=== PATIENT | female | born 1990 | race Caucasian/White ===

== ENCOUNTER 2017-12-31 11:08 | Emergency (ER) | payer OTHER ==
[~2017-12-31] VITALS: Ht 157.5 cm; Wt 56.7 kg
[~2017-12-31 11:08] MED LIST: AZIT250 PO; Augmentin 875-1 EACH PO; BUSP5 PO; CODIENE; COUGH; CYCL10 PO; IBUP800 PO; METPRE4DP PO; NAPR500 PO; Naprosyn500 MG PO; ONDA4 PO; OXYACE5T PO; PROCODE120 PO; PROM25 PO; Robaxin500 MG PO; Zofran Odt4 MG SL
[2018-01-01] MEDS ORDERED: Esgic Tablet1 EACH PO (13:30)
== END 2017-12-31 12:19 | disposition home or self-care (01) ==
LOC: ER 11:08
DX: R51 Headache (principal); Z88.5 Allergy status to narcotic agent; F17.210 Nicotine dependence, cigarettes, uncomplicated
CPT/HCPCS: 96372; 99283; J0780; J1200; J1885

== ENCOUNTER 2018-01-01 12:56 | Emergency (ER) | payer OTHER ==
[~2018-01-01] VITALS: Ht 157.5 cm; Wt 59.0 kg
[2018-01-01] MEDS ORDERED: Esgic Tablet1 EACH PO (13:30)
== END 2018-01-01 13:40 | disposition home or self-care (01) ==
LOC: ER 12:56
DX: R51 Headache (principal); F17.210 Nicotine dependence, cigarettes, uncomplicated; Z88.5 Allergy status to narcotic agent; Z79.899 Other long term (current) drug therapy
CPT/HCPCS: 99282

== ENCOUNTER 2019-01-08 13:50 | Emergency (ER) | payer MEDICAID ==
[~2019-01-08] VITALS: Ht 157.5 cm; Wt 68.0 kg
[~2019-01-08 13:50] MED LIST changes: +Esgic Tablet1 EACH PO
[2019-01-08] MEDS ORDERED: CYCL10 PO (16:08)
[2019-01-08] MEDS ORDERED: IBUP600 PO (16:08)
[2019-01-08] MEDS ORDERED: Ultram50 MG PO (16:08)
== END 2019-01-08 16:20 | disposition home or self-care (01) ==
LOC: ER 13:50
DX: M54.5 Low back pain (principal); Z88.5 Allergy status to narcotic agent; F17.210 Nicotine dependence, cigarettes, uncomplicated
CPT/HCPCS: 72070; J1885

== ENCOUNTER 2019-02-03 11:40 | Emergency (ER) | payer MEDICAID ==
[~2019-02-03] VITALS: Ht 157.5 cm; Wt 72.6 kg
[~2019-02-03 11:40] MED LIST changes: +IBUP600 PO; +Ultram50 MG PO
[2019-02-03] MEDS ORDERED: ALBU90OI INH (12:47)
[2019-02-03] MEDS ORDERED: Aerochamber1 EACH INH (12:47)
== END 2019-02-03 12:54 | disposition home or self-care (01) ==
LOC: ER 11:40
DX: J06.9 Acute upper respiratory infection, unspecified (principal); F17.210 Nicotine dependence, cigarettes, uncomplicated; Z88.6 Allergy status to analgesic agent
CPT/HCPCS: 71046; 99283-25

== ENCOUNTER 2022-04-08 21:23 | Emergency (ER) | payer OTHER ==
[~2022-04-08] VITALS: Ht 157.5 cm; Wt 90.7 kg
[~2022-04-08 21:23] MED LIST changes: +ALBU90OI INH; +Aerochamber1 EACH INH
[2022-04-09 02:24] LABS: BASOPHILS ABSOLUTE AUTO 0.02 K/mm3 (0.00-0.23); BASOPHILS PERCENT AUTO 0 % (0-2); EOSINOPHILS PERCENT AUTO 0 % (0-6); Hematocrit 37.3 % (33.0-51.0); Hemoglobin 12.7 g/dL (11.5-16.0); IMMATURE GRAN ABSOLUTE AUTO 0.02 K/mm3 (0.00-0.10); IMMATURE GRAN PERCENT AUTO 0 % (0-1); LYMPHOCYTES ABSOLUTE AUTO 0.42 K/mm3 (0.84-5.20); LYMPHOCYTES PERCENT AUTO 6 % (21-46); MONOCYTES ABSOLUTE AUTO 0.44 K/mm3 (0.16-1.47); MONOCYTES PERCENT AUTO 7 % (4-13); Mean Corpuscular HGB 29.5 pg (26.0-34.0); Mean Corpuscular Volume 87 fL (80-100); Mean Platelet Volume 9.3 fL (9.1-12.4); NEUTROPHILS ABSOLUTE AUTO 5.89 K/mm3 (1.96-9.15); NEUTROPHILS PERCENT AUTO 87 % (41-73); Platelet Count 244 K/mm3 (150-400); RDW Coefficient Variation 12.6 % (11.7-14.2); RDW Standard Deviation 40.1 fL (35.1-46.3); White Blood Cell Count 6.79 K/mm3 (4.00-11.30)
[2022-04-09 02:42] LABS: Albumin, Blood 4.1 g/dL (3.4-5.0); Albumin/Globulin Ratio 1.1 (0.8-1.8); Bilirubin, Total 0.2 mg/dL (0.1-1.0); Bun/Creatinine Ratio 13.3 (12.0-20.0); Calcium, Blood 8.9 mg/dL (8.5-10.1); Creatinine, Blood 0.83 mg/dL (0.40-1.00); Globulin, Blood 3.7 g/dL (2.2-4.0); Potassium, Blood 3.8 mmol/L (3.5-5.5); Total Protein, Blood 7.8 g/dL (6.4-8.2)
[2022-04-09] MEDS ORDERED: ONDA4ODT MM (04:37)
== END 2022-04-09 05:00 | disposition home or self-care (01) ==
LOC: ER 21:23
PROVIDERS: Student in an Organized Health Care Education/Training Program
DX: U07.1 COVID-19 (principal); F17.210 Nicotine dependence, cigarettes, uncomplicated; Z88.5 Allergy status to narcotic agent
CPT/HCPCS: 36415; 71045; 80053; 85025; 96374; 99284; A9270; J1885; J7030

== ENCOUNTER 2023-10-22 19:18 | Emergency (ER) | payer OTHER ==
[~2023-10-22] VITALS: Ht 157.5 cm; Wt 94.3 kg
[~2023-10-22 19:18] MED LIST changes: +ONDA4ODT MM
[2023-10-22 19:34] VITALS: BP 124/79
== END 2023-10-22 23:33 | disposition home or self-care (01) ==
LOC: ER 19:18
DX: I82.612 Acute embolism and thrombosis of superficial veins of left upper extremity (principal); F17.210 Nicotine dependence, cigarettes, uncomplicated; Z88.5 Allergy status to narcotic agent
CPT/HCPCS: 93971; 96372; 99283-25; J1885

== ENCOUNTER → 2024-08-05 | Outpatient (CLI) | payer OTHER | END | disposition home or self-care (01) | LOC: LAB 18:41 → LAB SHORT 18:41 | DX: N39.0 Urinary tract infection, site not specified (principal) | CPT/HCPCS: 87086 ==